=== PATIENT | female | born 1995 | race Caucasian/White ===

== ENCOUNTER 2017-09-15 18:34 | Emergency (ER) | payer OTHER ==
--- NOTE | 2017-09-15 19:27 | ED ---
Throat Pain/Nasal Congestion - HPI Summary HPI Summary: 21 female presents with sore throat for the past day. States her roommate was diagnosed with strept a couple days ago. She denies any history of strep. She denies any fatigue. She denies any fevers. She denies any cough. She denies any nausea vomiting. She denies any bowel pain. She has no medical conditions. no chest pain or shortness breath. She states the pain is manageable. - History of Current Complaint Chief Complaint: EDThroatPain Time Seen by Provider: 09/15/17 18:43 - Allergies/Home Medications Allergies/Adverse Reactions: Allergies Allergy/AdvReac Type Severity Reaction Status Date / Time codeine Allergy Hives Verified 09/15/17 18:37 Penicillins Allergy Hives Verified 09/15/17 18:37 PMH/Surg Hx/FS Hx/Imm Hx Endocrine/Hematology History: Denies: Hx Anticoagulant Therapy Cardiovascular History: Denies: Hx Myocardial Infarction Infectious Disease History: No Infectious Disease History: Denies: Traveled Outside the [place] in Last 30 Days - Family History Known Family History: Negative: Diabetes - Social History Alcohol Use: None Substance Use Type: Reports: None Smoking Status (MU): Never Smoked Tobacco Review of Systems Negative: Fever Positive: Sore Throat Negative: Chest Pain Negative: Shortness Of Breath All Other Systems Reviewed And Are Negative: Yes Physical Exam Triage Information Reviewed: Yes Vital Signs On Initial Exam: Initial Vitals Temp Pulse Resp BP Pulse Ox 98.4 F 63 14 111/73 99 09/15/17 18:38 09/15/17 18:38 09/15/17 18:38 09/15/17 18:38 09/15/17 18:38 Vital Signs Reviewed: Yes Appearance: Positive: Well-Appearing Skin: Positive: Warm, Dry Head/Face: Positive: Normal Head/Face Inspection Eyes: Positive: Normal, EOMI, BÁRBAAR, Conjunctiva Clear ENT: Positive: Pharyngeal erythema, TMs normal, Uvula midline, Other - soft palate symmetric. Negative: Tonsillar swelling, Tonsillar exudate Neck: Positive: Supple, Nontender, No Lymphadenopathy Respiratory/Lung Sounds: Positive: Clear to Auscultation, Breath Sounds Present Cardiovascular: Positive: Normal, RRR Musculoskeletal: Positive: Normal Neurological: Positive: Normal Psychiatric: Positive: Normal Diagnostics - Vital Signs Vital Signs Temp Pulse Resp BP Pulse Ox 09/15/17 18:38 98.4 F 63 14 111/73 99 - Laboratory Lab Results: Lab Results 09/15/17 Range/Units 18:53 Group A Strep Rapid Negative (Negative) Lab Statement: Any lab studies that have been ordered have been reviewed, and results considered in the medical decision making process. EENT Course/Dx - Course Course Of Treatment: 21 female presents with sore throat for the past day. States her roommate was diagnosed with strept a couple days ago. She denies any history of strep. She denies any fatigue. She denies any fevers. She denies any cough. She denies any nausea vomiting. She denies any bowel pain. She has no medical conditions. no chest pain or shortness breath. She states the pain is manageable. On exam has erythematous pharynx. Uvula midline. Soft palate symmetric. Strep negative. We'll treat conservatively. Patient understands agrees with plan. - Differential Diagnoses Differential Diagnoses: Pharyngitis, Tonsilitis, URI/Bronchitis - Diagnoses Provider Diagnoses: Pharyngitis Discharge - Sign-Out/Discharge Documenting (check all that apply): Discharge/Admit/Transfer - Discharge Plan Condition: Good Disposition: HOME Patient Education Materials: Pharyngitis (ED) Referrals: No Primary Care Phys,NOPCP [Primary Care Provider] - Additional Instructions: Take Tylenol or ibuprofen for pain every 6 hours Can gargle salt water Can use cough drops or products such as cloraseptic spray Establish care with primary care physician Return to ED if develop any new or worsening symptoms - Billing Disposition and Condition Condition: GOOD Disposition: HOME
[2017-09-15 19:45] VITALS: BP 118/72
== END 2017-09-15 19:43 | disposition home or self-care (01) ==
LOC: ED 18:34
DX: J02.9 Acute pharyngitis, unspecified (principal); Z20.828 Contact with and (suspected) exposure to other viral communicable diseases; Z88.5 Allergy status to narcotic agent; Z88.0 Allergy status to penicillin
CPT/HCPCS: 87651; 99281